=== PATIENT | female | born 2005 | race Two or more races ===

== ENCOUNTER 2024-11-28 13:04 | Outpatient (AMB) | payer MEDICAID, SELFPAY ==
--- NOTE | 2024-11-28 13:09 | OBCLNT_ITS ---
Vital Signs 11/28/24 13:24 Height 1.65 m Height Method Stated Weight 89.018 kg Weight Measurement Method Standing Scale BMI 32.6 BP 118/75 Blood Pressure Source Automatic Cuff Blood Pressure Location Left Upper Arm Position Sitting Respiration 16 Pulse 81 Pulse Source Monitor Temp 98.1 F Temp Source Oral Pulse Oximetry (%) 97 Oxygen Delivery Method Room Air Allergies/Home Meds Allergies & Medications Allergies No Known Allergies Allergy (Verified 11/28/24 13:25) Medication Reconciliation No Known Home Medications 11/28/24 [History Confirmed 11/28/24] Intake Visit Data Collection New Patient or Established: Established Patient (seen at 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 1. Little interest or pleasure in doing things: not at all 2. Feeling down, depressed, or hopeless: not at all Total score: 0 PHQ-9 3. Trouble falling or staying asleep, or sleeping too much: Not at all 4. Feeling tired or having little energy: Not at all 5. Poor appetite or overeating: Not at all 6. Feeling bad about yourself - or that you are a failure or have let yourself or your family down: Not at all 7. Trouble concentrating on things, such as reading the newspaper or watching television: Not at all 8. Moving or speaking so slowly that other people could have noticed? - Or the opposite - being so fidgety or restless that you have been moving around a lot more than usual: not at all 9. Thoughts that you would be better off or of hurting yourself in some way: Not at all Total score: 0 Source: Developed by Drs. Genaro Monahan, Salima Baker, Pravin Myers and colleagues, with an educational mara from [employer]. Depression screen completed yes Social History Living Situation History Marital Status: Single Lives With: Family Housing: House Tobacco History Smoking Status: Never smoker Second Hand Smoke Exposure: No Alcohol History Alcohol Intake: Current Alcohol Intake Frequency: holidays/special occasions only Domestic Abuse History Do You Feel Safe at Home: Yes History of Present Illness HPI Narrative 19-year-old 1 para 0 for OBI. Patient has no dates. She thinks maybe her last period was in September. History of irregular menses. Plan . Patient denies existence of any chronic medical problems. Denies any surgeries. Denies any social habits. She has slight nausea. No vomiting. Both her and her partner are happy about the . Patient complains of spotting light for the last 2 days. 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 No dates. Slight nausea. Patient reports spotting light pink for 2 days. No UC is no leaking fluid. Beta -hCG x 1. OB panel today. I did a A1c and a TSH. Sono ordered at [facility]. Discussed SAB precautions. Return in 2 weeks for follow-up and OB check Menstrual History Menstrual reliability: approximate (month known) Flow: normal Menstrual regularity: irregular Monthly: No Age at menarche: 10 On control pills at conception: No Date of positive home test: 11/12/24 Associated symptoms (LMP): Reports nausea and breast tenderness OB History : 1 # of Living Children: 0 Infection History & Risk Evaluation History of STDs: chlamydia Genetic Screening & History Genetic Screening/Teratology Counseling - Includes patient, baby's father, or anyone in either family with: 1. Patient's age 35 years or older as of estimated date of delivery: No 2. Thalassemia (Tajik, Turkish, Mediterranean, or Background); MCV less than 80: No 3. Neural Tube Defect (Meningomyelocele, Spina Bifida, or Anencephaly): No 4. Congenital Heart Defect: No 5. Down Syndrome: No 6. Shade-Sachs (Ashkenazi Druze, Cajun, Azeri [place]): No 7. Rowena Disease (Ashkenazi Druze): No 8. Familial Dysautonomia (Ashkenazi Druze): No 9. Sickle Cell Disease or Trait (): No 10. Hemophilia or other blood disorders: No 11. Muscular Dystrophy: No 12. Cystic Fibrosis: No 13. Atkinson's Chorea: No 14. Mental Retardation/Autism: No 15. Other inherited genetic or chromosomal disorder: No 16. Maternal Metabolic Disorder (EG,TYPE 1 Diabetes, PKU): No 17. Patient or baby's father had a child with defects not listed above: No 18. Recurrent loss or a stillbirth: No 19. Medications (including supplements, vitamins, herbs or otc drugs)/illicit/recreational drugs/alcohol since last menstrual period: No 20. Any other: No Infection History 1. Live with someone with TB or exposed to TB: No 2. Rash or viral illness since last menstrual period: No 3. Hepatitis B,C: No 4. History of STD: chlamydia Other (see comments) Source: [employer] Review of Systems Review of Systems Systems Reviewed: All systems reviewed, normal except as documented Gastrointestinal Gastrointestinal: Reports nausea Exam General Limitations: no limitations General Appearance: alert, in no apparent distress, comfortable, cooperative, healthy appearing, well developed and well groomed Head Head exam: atraumatic, normocephalic and normal inspection ENT ENT exam: Present normal exam, normal oropharynx and mucous membranes moist Chest Chest inspection: Present normal inspection and symmetric chest wall rise Resp Respiratory exam: Present normal lung sounds bilaterally Card Cardiovascular exam: Present regular rate, normal rhythm and normal heart sounds Abdominal Abdominal exam: Present soft and normal bowel sounds Psych Psychiatric exam: Present normal affect and normal mood Office Procedures OB Clinic LOC & Office Proc's Nursing/Assessment Patient Status: Established Patient OB Clinic Nursing Assessment: Medication Reconciliation, Update PMH in EMR and Vital Signs OB Clinic Coordination of Care: Complex Care and Chronic Disease 1-5, Consent,records obtained, informed consent, Education Simp Pt/Fam, 1 Ins Authorization, Lab and Imaging orders, Results/Orders obtained and Staff clarify orders Special Needs: Heart tones Established Patient Charge Established Patient Point Assignment: 150 Established Patient Point Charge: EP Level 4 (120-155) Assessment & Plan Diagnosis / Problem List (1) Encounter for supervision of high risk in first trimester, antepartum: Status: Acute (2) Uterine size-date discrepancy in first trimester: Status: Acute Plan OB panel today with hCG, A1c and TSH. Discussed SAB precautions. ER precautions with parameters. Increase fluids. Discussed diet and weight. Ultrasound scheduled at [facility] for viability. Continue prenatals. Return in 2 weeks for OB check and results Additional Plan Follow Up: 2 Weeks (obc)
[2024-11-28 13:24] VITALS: BP 118/75; PULSE 81; RESP 16; TEMP 36.7; O2SAT 97; BMI 32.6
== END 2024-11-28 13:51 | disposition home or self-care (01) ==
LOC: HODSOBC 13:04
PROVIDERS: Supervising Provider Advanced Practice Midwife; Visit Provider Advanced Practice Midwife
DX: O09.891 Supervision of other high risk pregnancies, first trimester (principal); O26.841 Uterine size-date discrepancy, first trimester; Z3A.09 9 weeks gestation of pregnancy
CPT/HCPCS: 99214; G0463

== ENCOUNTER 2024-12-31 13:29 | Outpatient (AMB) | payer MEDICAID, SELFPAY ==
[2024-12-31 13:53] VITALS: BP 107/70; PULSE 91; RESP 16; TEMP 36.2; O2SAT 98; BMI 31.6
--- NOTE | 2024-12-31 13:53 | OBCLNT_ITS ---
Vital Signs 12/31/24 13:53 Height 1.65 m Height Method Stated Weight 86.239 kg Weight Measurement Method Standing Scale BMI 31.6 BP 107/70 Blood Pressure Source Automatic Cuff Blood Pressure Location Left Upper Arm Position Sitting Respiration 16 Pulse 91 Pulse Source Monitor Temp 97.2 F Temp Source Oral Pulse Oximetry (%) 98 Oxygen Delivery Method Room Air Allergies/Home Meds Allergies & Medications Allergies No Known Allergies Allergy (Verified 12/31/24 13:54) Medication Reconciliation No Known Home Medications 11/28/24 [History Confirmed 12/31/24] Intake Visit Data Collection New Patient or Established: Established Patient (seen at [facility] within 3 years) Reason for Visit:: OBC Seen by Clinical Staff ONLY (RN/MA): No Concrete Bucket Hooker Required: No Do You Feel Safe at Home: Yes Authorities Contacted: N/A PCP or OBGYN visit in last 3 months: Yes Date of Last PCP or OBGYN visit: 11/28/24 Hx Now: Yes Are you currently on any form of Control: No Pain Present Currently: Yes Pain Scale Used: [place]ant[place]ruz/Numerical Pain scale:: 0 Smoking Status Smoking Status: Never smoker Questionnaires Covid-19 Vaccine Questionnaire Has patient been vacinated for Covid-19 Have you been vacinated for Covid-19: Yes PHQ-9 PHQ-2 Over the last 2 weeks, how often have you been bothered by any of the following problems? 1. Little interest or pleasure in doing things: not at all 2. Feeling down, depressed, or hopeless: not at all Total score: 0 PHQ-9 3. Trouble falling or staying asleep, or sleeping too much: Not at all 4. Feeling tired or having little energy: Not at all 5. Poor appetite or overeating: Not at all 6. Feeling bad about yourself - or that you are a failure or have let yourself or your family down: Not at all 8. Moving or speaking so slowly that other people could have noticed? - Or the opposite - being so fidgety or restless that you have been moving around a lot more than usual: not at all 9. Thoughts that you would be better off or of hurting yourself in some way: Not at all If you checked off any problems, how difficult have these problems made it for you to do your work, take care of things at home, or get along with other people?: not difficult at all Source: Developed by Drs. Genaro Monahan, Salima Baker, Pravin Myers and colleagues, with an educational mara from [employer]. 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 No dates. Slight nausea. Patient reports spotting light pink for 2 days. No UC is no leaking fluid. Beta -hCG x 1. OB panel today. I did a A1c and a TSH. Sono ordered at [facility]. Discussed SAB precautions. Return in 2 weeks for follow-up and OB check 12/31/24 -?-?-?-?-?-?-?-?-?-?-?-?- 14w 3d 86.239 kg 107/70 absent unknown 10 145 absent No spotting today. Patient last about 3 weeks ago pink. Denies any first trimester discomforts. Patient did not have ultrasound done at [facility]. Schedule [facility] ultrasound. NIPT and carrier screen. Discussed SAB precautions. Return in 4 weeks OB check HOANG Calculator Estimated Delivery Date Method Current WG Current Estimate 06/28/25 LMP (Uncertain) 14w 3d Notes Visit Date: 12/31/24 Last Updated by: Carmel Deleon CNM O-,ABS-, HCV-,HBSAG-, HIV-, RUB NI, GC/CT-, /362, UT-,A1;5.3 Visit Date: 11/28/24 Last Updated by: Carmel Deleon CNM 19 yo . no dates Office Procedures OB Clinic LOC & Office Proc's Nursing/Assessment Patient Status: Established Patient OB Clinic Nursing Assessment: Medication Reconciliation, Update PMH in EMR and Vital Signs OB Clinic Coordination of Care: Education Complex Pt/Fam, Consent,records obtained, informed consent, Lab and Imaging orders and Staff clarify orders Special Needs: Heart tones Established Patient Charge Established Patient Point Assignment: 110 Established Patient Point Charge: EP Level 3 (80-115) Assessment & Plan Diagnosis / Problem List (1) Encounter for supervision of high risk in first trimester, antepartum: Status: Acute (2) Uterine size-date discrepancy in first trimester: Status: Acute Plan NIPT and carrier screens today. Schedule [facility] sono with Dr. Hurd. Discussed SAB precautions. I discussed labs and Rh- with patient RhoGAM at 28 weeks Additional Plan Follow Up: 4 Weeks (obc)
== END 2024-12-31 14:46 | disposition home or self-care (01) ==
LOC: HODSOBC 13:29
PROVIDERS: Supervising Provider Advanced Practice Midwife; Visit Provider Advanced Practice Midwife
DX: O09.892 Supervision of other high risk pregnancies, second trimester (principal); O26.842 Uterine size-date discrepancy, second trimester; Z67.41 Type O blood, Rh negative; Z3A.14 14 weeks gestation of pregnancy
CPT/HCPCS: 99213; G0463

== ENCOUNTER 2025-01-05 10:40 | Emergency (ER) | payer MEDICAID, SELFPAY ==
[2025-01-05 10:41] VITALS: BMI 19.8
[2025-01-05 11:04] VITALS: BP 108/68; PULSE 73; RESP 18; TEMP 36.6; O2SAT 99
--- NOTE | 2025-01-05 11:09 | XR_ITS ---
Examination: Complete OB ultrasound, less than 14 weeks, transabdominal Date and time of exam: January 05, 2025, 1233 hours INDICATIONS: Pelvic cramping and bleeding today Technique: Obstetrical ultrasound images less than 14 weeks performed via transabdominal imaging Findings: A normal shaped single intrauterine gestation is present in the uterus. CRL 5.3 cm corresponds to 12 weeks 0 day gestational age Cardiac motion 160 BPM. No subchorionic hemorrhage Right ovary obscured by bowel gas Left ovary 4.6 cm arterial flow 17 x 17 mm cyst Ultrasonographic survey of visible and placental structures unremarkable. Amniotic fluid volume appears appropriate for this estimated gestational age. Impression: Viable intrauterine gestation 12 weeks 0 days.
--- NOTE | 2025-01-05 11:10 | EDNOTE_ITS ---
<Statement entered by Soni Goldstein MD - 01/05/25 14:32> As co-signing physician, I was present and available for consult prn. I concur with the plan and care as documented by the midlevel provider. ED OB Contraction Preg RMI/HPI General Chief complaint: Urogenital-Female Stated complaint: VAG BLEEDING + PREG 11 WEEKS Time Seen by Provider: 01/05/25 11:09 Source: patient Arrival date/time: 01/05/25 10:40 19-year-old female with no known medical history presents to the emergency room with a chief complaint of vaginal bleeding and left lower quadrant abdominal pain x 2 days. Patient is currently 11 weeks . Mode of arrival: ambulatory Limitations: no limitations Related Data Home Medications ?Medication ?Instructions ?Recorded ?Confirmed No Known Home Medications 11/28/2412/22 Allergies Allergy/AdvReac Type Severity Reaction Status Date / Time No Known Allergies Allergy Verified 01/05/25 10:43 Review of Systems Review of Systems Systems Reviewed: All systems reviewed, normal except as documented Constitutional Constitutional: Reports system reviewed and no additional complaints, except as documented, Denies fatigue, Denies fever(s), Denies headache(s) and Denies weakness Eyes Eyes: Reports system reviewed and no additional complaints, except as documented, Denies blurry vision and Denies change in vision ENT Ears, Nose, Mouth, and Throat: Reports system reviewed and no additional complaints, except as documented, Denies otalgia, Denies headache(s), Denies nasal congestion, Denies throat swelling and Denies vertigo Cardiovascular Cardiovascular: Reports system reviewed and no additional complaints, except as documented, Denies chest pain, Denies dyspnea and Denies dyspnea on exertion Respiratory Respiratory: Reports system reviewed and no additional complaints, except as documented, Denies chest congestion, Denies cough, Denies dyspnea, Denies dyspnea on exertion and Denies wheezing Gastrointestinal Gastrointestinal: Reports system reviewed and no additional complaints, except as documented, Reports abdominal pain, Denies cramping, Reports nausea and Denies vomiting Genitourinary Genitourinary: Reports system reviewed and no additional complaints, except as documented and Reports abnormal vaginal bleeding Musculoskeletal Musculoskeletal: Reports system reviewed and no additional complaints, except as documented and Denies back pain Integumentary/Breasts Skin/Breast: Reports system reviewed and no additional complaints, except as documented and Denies wounds Neurologic Neurologic: Reports system reviewed and no additional complaints, except as documented, Denies confusion, Denies headache(s), Denies lack of coordination, Denies vertigo and Denies weakness Psychiatric Psychiatric: Reports system reviewed and no additional complaints, except as documented, Denies anxiety, Denies confusion, Denies depression, Denies paranoia, Denies suicidal ideation and Denies tactile hallucinations Endocrine Endocrine: Reports system reviewed and no additional complaints, except as documented and Denies fatigue Hematologic/Lymphatic Hematologic/Lymphatic: Reports system reviewed and no additional complaints, except as documented and Denies lymphadenopathy Allergic/Immunologic Allergic/Immunologic: Reports system reviewed and no additional complaints, except as documented, Denies throat swelling, Denies urticaria and Denies wheezing Past Medical History Past Medical History NEUROLOGIC: Negative Neurological Disorders CARDIAC: Negative Cardiac Disorders Social History SMOKING STATUS: Never smoker SECOND HAND EXPOSURE: No ED Exam General Limitations: Present no limitations General appearance: Present alert and in no apparent distress Head Head exam: Present atraumatic Eye Eye exam: Present normal appearance, PERRL and EOMI ENT ENT exam: Present normal exam, normal oropharynx and mucous membranes moist Neck Neck exam: Present normal inspection, full ROM and trachea midline Chest Chest inspection: Present normal inspection and symmetric chest wall rise Respiratory Respiratory exam: Present normal lung sounds bilaterally Cardiovascular Cardiovascular exam: Present regular rate, normal rhythm and normal heart sounds Abdominal Exam Abdominal exam: Present soft, tenderness and normal bowel sounds Abdominal tenderness: Present LLQ and suprapubic Extremities Exam Extremities exam: Present normal inspection and full ROM Back Exam Back exam: Present normal inspection and full ROM Neurological Exam Neurological exam: Present alert, oriented X3 and CN II-XII intact Psychiatric Psychiatric exam: Present normal affect and normal mood Skin Skin exam: Present warm, dry, intact and normal color Course Quality Measures none Orders Category Date Time Status US OB <= 14 weeks fetus Stat Exams 01/05/25 11:09 Completed ABO/RH Type Stat Lab 01/05/25 11:40 Completed Beta HCG,Quantitative Stat Lab 01/05/25 11:40 Completed CBC Stat Lab 01/05/25 11:40 Completed CMP [Comprehensive Metabolic Panel] Stat Lab 01/05/25 11:40 Completed UA [Urinalysis] Stat Lab 01/05/25 11:10 Completed Vital Signs Vital signs: Vital Signs Temperature 97.9 F 01/05/25 11:04 Pulse Rate 73 01/05/25 11:04 Respiratory Rate 18 01/05/25 11:04 Blood Pressure 108/68 01/05/25 11:04 Pulse Oximetry (%) 99 01/05/25 11:04 Oxygen Delivery Method Room Air 01/05/25 11:04 Vaginal Bleeding MDM Narrative MDM Narrative: 19-year-old female with no known medical history presents to the emergency room with a chief complaint of vaginal bleeding and left lower quadrant abdominal pain x 2 days. Patient is currently 11 weeks . Patient is hemodynamically stable and in no apparent distress Physical examination shows some left lower quadrant abdominal pain as well as some vaginal spotting Ultrasound OB was completed and shows a viable intrauterine gestation at 12 weeks. heart tones at 160 bpm and her hCG levels are 74,377 CBC CMP were all within normal limits. The ultrasound did find a 17 x 17 mm cyst on the left ovary Patient was discharged and educated to follow-up with primary care provider in the next 24 to 48 hours and return to the emergency room for any evidence of worsening signs or symptoms Patient data External records reviewed:: [facility] previous records Clinical information provided by:: patient Social determinants that could affect healthcare access:: none Patient has the following chronic illnesses:: No chronic illness How is presenting disease/condition affected by chronic disease/condition?: no chronic disease Evaluation data The following diagnostics were reviewed and interpreted by me:: lab results and radiology exam(s) Lab and/or radiology exams considered but not ordered:: Labs and radiology exams considered and ordered Interpretation Summary: Ultrasound OB-Findings: A normal shaped single intrauterine gestation is present in the uterus. CRL 5.3 cm corresponds to 12 weeks 0 day gestational age Cardiac motion 160 BPM. No subchorionic hemorrhage Right ovary obscured by bowel gas Left ovary 4.6 cm arterial flow 17 x 17 mm cyst Ultrasonographic survey of visible and placental structures unremarkable. Amniotic fluid volume appears appropriate for this estimated gestational age. Impression: Viable intrauterine gestation 12 weeks 0 days. Medications / Prescriptions Medications or Prescriptions considered but not ordered:: No medication given Medication administrations:: No medication given Consultations Consultation(s) initiated? (list below): No Diagnosis Vaginal Bleeding Differential Diagnosis: threatened , dysfunctional uterine bleeding, ectopic without intrauterine and vaginal bleeding Most likely diagnosis given after review of the tests above:: Vaginal bleeding/ovarian cyst Admission Indicated Admission indicated?: not indicated Admission Request Was there a request for admission?: No Disposition Plan Disposition Plan: Discharge Discharge Attestation Discharge Attestation: The patient and all family members were given an opportunity to ask questions and understood the discharge instructions. Discharge instructions specifically effects, indications for sooner follow up or return to the emergency department, and the expected course of current diagnosis. Patient condition: Stable Discharge Plan Plan Patient Disposition: HOME (Self Care) Discharge Disposition comment: Stable Prescriptions/Referrals Prescriptions/Med Rec: No Action No Known Home Medications Referrals: No Primary/Family,Physician [Primary Care Provider] - In 1 week Problem List Clinical Impression: Vaginal bleeding during , Ovarian cyst Patient/Caregiver Discharge Instructions Education Materials: Bleeding During Early , ED Ovarian Cyst Additional Instructions: Please follow-up with your EMERGENCY MEDICINE PHYSICIAN in the next 24 to 48 hours An ultrasound was completed and shows a in good standing at 12 weeks. Your heart tones are 160 bpm. And your hCG levels are at 74,377. There was also an incidental finding of a 17 x 17 mm left-sided ovarian cyst. Please follow-up with your EMERGENCY MEDICINE PHYSICIAN for further management. For any evidence of worsening signs or symptoms please return to the emergency room immediately Print Language: Mongolian Stand Alone Forms: Brianna Award Info., Work/School Release, Patient Portal Info Letter KARLY/TOMY Supervising Physician KARLY/TOMY Supervising Physician: Dr. GOLDSTEIN
[2025-01-05 11:33] LABS: Collection Type, Urine Clean Catch
[2025-01-05 12:01] LABS: Bilirubin,Urine Negative (Negative); Blood,Urine 2+ (Negative); Clarity,Urine Turbid (Clear/Hazy); Color,Urine Yellow (Lt Yel-Yel); Glucose, Urine Negative (Negative); Ketones,Urine Negative (Negative); Leukocyte Esterase,Urine Positive (Negative); Nitrite,Urine Negative (Negative); PH,Urine 6.0 (5.0-7.0); Protein,Urine Trace (Neg - Trace); RBC,Urine 15 /hpf (0-3); Specific Gravity,Urine 1.031 (1.001-1.035); Squamous Epithelial Cell,Urine 18 /hpf (0-5); Urobilinogen,Urine Negative mg/dL (0.0-1.0); WBC,Urine 26 /hpf (0-5)
[2025-01-05 12:18] LABS: Basophils # (Auto) 0.1 Thou/mm3 (0.0-0.2); Basophils % (Auto) 1 % (0-2.5); Eosinophils # (Auto) 0.2 Thou/mm3 (0.0-0.5); Eosinophils % (Auto) 2 % (0-10); Hematocrit 34.9 % (36.0-46.0); Hemoglobin 11.6 g/dL (12.0-16.0); Immature Granulocytes Auto 0.05 Thou/mm3 (0.00-0.00); Lymphocytes # (Auto) 2.5 Thou/mm3 (1.0-4.8); Lymphocytes % (Auto) 25 % (10-50); Mean Corpuscular HGB Conc 33.2 g/dl (31.0-37.0); Mean Corpuscular Hemoglobin 28.1 pg (25.0-35.0); Mean Corpuscular Volume 85 fL (80-100); Monocytes # (Auto) 0.7 Thou/mm3 (0.0-0.8); Monocytes % (Auto) 7 % (0-12); Neutrophils # (Auto) 6.7 Thou/mm3 (1.8-7.7); Neutrophils % (Auto) 65 % (37-80); Nucleated Red Blood Cell # 0.00 Thou/mm3 (0.00-0.00); Nucleated Red Blood Cell % 0 /100 WBC (0); Platelet Count 339 Thou/mm3 (140-440); RDW Standard Deviation 47.2 fL (36.4-46.3); Red Blood Count 4.13 Miln/mm3 (4.00-5.20); White Blood Count 10.2 Thou/mm3 (3.6-11.0)
[2025-01-05 13:00] LABS: Alanine Aminotransferase 51 U/L (10-49); Albumin, Serum 4.2 gm/dL (3.5-5.0); Albumin/Globulin Ratio 1.5 (1.2-2.2); Alkaline Phosphatase 56 U/L (46-116); Anion Gap 10 (7-16); Aspartate Amino Transferase 32 U/L (0-34); BUN/Creatinine Ratio 8 Ratio (12-20); Bilirubin,Total 0.3 mg/dL (0.3-1.2); Blood Urea Nitrogen 5 mg/dL (9-23); Calcium 10.3 mg/dL (8.3-10.6); Calcium (Corrected) 10.3 mg/dL (8.5-10.1); Carbon Dioxide 24.7 mMol/L (20.0-31.0); Chloride 104 mMol/L (98-107); Creatinine (Component) 0.6 mg/dL (0.6-1.3); Estimated Creatinine Clearance 126.4 mL/min (>60); Globulin 2.8 gm/dL (2.3-3.5); Glucose 91 mg/dL (74-106); Osmolality,Calculated 274 (275-295); Potassium 4.1 mMol/L (3.4-5.1); Sodium 139 mMol/L (136-145); Total Protein 7.0 gm/dL (5.7-8.2); eGFR > 60 See Note
[2025-01-05 13:24] LABS: Beta HCG,Quantitative 74377 mIU/mL (<5.0)
== END 2025-01-05 15:06 | disposition home or self-care (01) ==
PROVIDERS: Emergency Provider Nurse Practitioner Family
DX: O20.9 Hemorrhage in early pregnancy, unspecified (principal); O34.81 Maternal care for other abnormalities of pelvic organs, first trimester; N83.202 Unspecified ovarian cyst, left side; Z3A.12 12 weeks gestation of pregnancy
CPT/HCPCS: 36415; 76801; 80053; 81001; 84702; 85025; 86900; 86901; 99283

== ENCOUNTER 2025-01-28 12:59 | Outpatient (AMB) | payer MEDICAID, SELFPAY ==
--- NOTE | 2025-01-28 13:07 | OBCLNT_ITS ---
Vital Signs 01/28/25 13:08 Height 1.65 m Height Method Stated Weight 85.899 kg Weight Measurement Method Standing Scale BMI 31.5 BP 116/72 Blood Pressure Source Automatic Cuff Blood Pressure Location Left Upper Arm Position Sitting Respiration 16 Pulse 79 Pulse Source Monitor Temp 98.8 F Temp Source Oral Pulse Oximetry (%) 98 Oxygen Delivery Method Room Air Allergies/Home Meds Allergies & Medications Allergies No Known Allergies Allergy (Verified 01/28/25 13:10) Medication Reconciliation No Known Home Medications 11/28/24 [History Confirmed 01/28/25] Intake Visit Data Collection New Patient or Established: Established Patient (seen at [facility] within 3 years) Reason for Visit:: OBC Seen by Clinical Staff ONLY (RN/MA): No Practical Nurse Clinical Coordinator Required: No Do You Feel Safe at Home: Yes Authorities Contacted: N/A PCP or OBGYN visit in last 3 months: Yes Date of Last PCP or OBGYN visit: 01/05/25 Hx Now: Yes Are you currently on any form of Control: No Pain Present Currently: No Pain Scale Used: [place]/Numerical Pain scale:: 0 Smoking Status Smoking Status: Never smoker Questionnaires Covid-19 Vaccine Questionnaire Has patient been vacinated for Covid-19 Have you been vacinated for Covid-19: Yes PHQ-9 PHQ-2 Over the last 2 weeks, how often have you been bothered by any of the following problems? 1. Little interest or pleasure in doing things: not at all 2. Feeling down, depressed, or hopeless: not at all Total score: 0 PHQ-9 3. Trouble falling or staying asleep, or sleeping too much: Not at all 4. Feeling tired or having little energy: Not at all 5. Poor appetite or overeating: Not at all 6. Feeling bad about yourself - or that you are a failure or have let yourself or your family down: Not at all 7. Trouble concentrating on things, such as reading the newspaper or watching television: Not at all 8. Moving or speaking so slowly that other people could have noticed? - Or the opposite - being so fidgety or restless that you have been moving around a lot more than usual: not at all 9. Thoughts that you would be better off or of hurting yourself in some way: Not at all Total score: 0 If you checked off any problems, how difficult have these problems made it for you to do your work, take care of things at home, or get along with other people?: not difficult at all Source: Developed by Drs. Genaro Monahan, Salima Baker, Pravin Myers and colleagues, with an educational mara from [employer]. 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 No dates. Slight nausea. Patient reports spotting light pink for 2 days. No UC is no leaking fluid. Beta -hCG x 1. OB panel today. I did a A1c and a TSH. Sono ordered at OB. Discussed SAB precautions. Return in 2 weeks for follow-up and OB check 12/31/24 -?-?-?-?-?-?-?-?-?-?-?-?- 14w 3d 86.239 kg 107/70 absent unknown 10 145 absent No spotting today. Patient last about 3 weeks ago pink. Denies any first trimester discomforts. Patient did not have ultrasound done at OB. Schedule [facility] ultrasound. NIPT and carrier screen. Discussed SAB precautions. Return in 4 weeks OB check HOANG Calculator Estimated Delivery Date Method Current WG Current Estimate 06/28/25 LMP (Uncertain) 18w 3d Notes Visit Date: 12/31/24 Last Updated by: Carmel Deleon CNM O-,ABS-, HCV-,HBSAG-, HIV-, RUB NI, GC/CT-, /, UT-,A1;5.3 Visit Date: 11/28/24 Last Updated by: Carmel Deleon CNM 19 yo . no dates Office Procedures OBC Clinic LOC & Office Proc's Nursing/Assessment Patient Status: Established Patient OB Clinic Nursing Assessment: Medication Reconciliation, Update PMH in EMR and Vital Signs OB Clinic Coordination of Care: Education Complex Pt/Fam, Consent,records obtained, informed consent, Lab and Imaging orders, Results/Orders obtained and Staff clarify orders Special Needs: Heart tones Established Patient Charge Established Patient Point Assignment: 115 Established Patient Point Charge: EP Level 3 (80-115) Assessment & Plan Diagnosis / Problem List (1) Encounter for supervision of high risk in second trimester, antepartum: Status: Acute Additional Assessment Corrected EDC to 07/20\26. aFP today. Keep appointment with maternal- medicine when they schedule it. Discussed SAB precautions. Continue prenatals. Return in 4 weeks OB check
[2025-01-28 13:08] VITALS: BP 116/72; PULSE 79; RESP 16; TEMP 37.1; O2SAT 98; BMI 31.5
== END 2025-01-28 13:24 | disposition home or self-care (01) ==
LOC: HODSOBC 12:59
PROVIDERS: Supervising Provider Advanced Practice Midwife; Visit Provider Advanced Practice Midwife
DX: O09.92 Supervision of high risk pregnancy, unspecified, second trimester (principal); Z3A.18 18 weeks gestation of pregnancy
CPT/HCPCS: 99213; G0463

== ENCOUNTER 2025-03-13 12:54 | Outpatient (AMB) | payer MEDICAID, SELFPAY ==
--- NOTE | 2025-03-13 13:10 | OBCLNT_ITS ---
Vital Signs 03/13/25 13:13 Height 1.65 m Height Method Stated Weight 89.868 kg Weight Measurement Method Standing Scale BMI 33.0 BP 131/78 H Blood Pressure Source Automatic Cuff Blood Pressure Location Left Upper Arm Position Sitting Respiration 18 Pulse 90 Pulse Source Monitor Temp 97.2 F Temp Source Oral Pulse Oximetry (%) 98 Oxygen Delivery Method Room Air Allergies/Home Meds Allergies & Medications Allergies No Known Allergies Allergy (Verified 03/13/25 13:14) Medication Reconciliation No Known Home Medications 11/28/24 [History Confirmed 03/13/25] Immunizations Immunizations Flu Vaccine in the Last 12 Months: No Flu Vaccine Exclusion Criteria: No Exclusion Criteria Care OB Visit Log OB Flowsheet Initial Weight: Not Recorded Date -?-?-?-?-?-?-?-?-?-?-?-?- EGA Weight BP Alb Glu CTX Pres Fundal ht FHR Mov Dilation Station Effacement Hx Notes Visit Note 11/28/24 -?-?-?-?-?-?-?-?-?-?-?-?- 6w 4d 89.018 kg 118/75 absent unknown 5 ab sent 19-year-old primary for OBI. No dates. Slight nausea. Patient reports spotting light pink for 2 days. No UC is no leaking fluid. Beta -hCG x 1. OB panel today. I did a A1c and a TSH. Sono ordered at [facility]. Discussed SAB precautions. Return in 2 weeks for follow-up and OB check 12/31/24 -?-?-?-?-?-?-?-?--?-?-?-?- 11w 2d 86.239 kg 107/70 absent unknown 10 145 absent No spotting today. Patient last about 3 weeks ago pink. Denies any first trimester discomforts. Patient did not have ultrasound done at [facility]. Schedule [facility] ultrasound. NIPT and carrier screen. Discussed SAB precautions. Return in 4 weeks OB check 01/28/25 -?-?-?-?-?-?-?--?-?-?-?-?- 15w 2d 85.899 kg 116/72 absent unknown 15 145 absent 17 mm ovarian cyst. Corrected EDC July 20, 2025. Denies bleeding denies cramps denies leaking on January 05. The ultrasound showed 12-week and of Discussed NIPT results. aFP today. MFM pending. Discussed SAB precautions. Discussed dates and corrected EDC wrong dates HOANG Calculator Estimated Delivery Date Method Current WG Current Estimate 07/20/25 Ultrasound #1 21w 4d Other Estimates 06/28/25 LMP (Uncertain) 24w 5d 07/20/25 Manual 21w 4d final hoang: 07/20 Notes Visit Date: 01/28/25 Last Updated by: Carmel Deleon CNM NIPT-,SMA-,CF-. sono 01/05/25: iup 12 wk, CEDC:07/20/24 Visit Date: 12/31/24 Last Updated by: Carmel Deleon CNM O-,ABS-, HCV-,HBSAG-, HIV-, RUB NI, GC/CT-, , UT-,A1;5.3 Visit Date: 11/28/24 Last Updated by: Carmel Deleon CNM 19 yo . no dates Office Procedures OBC Clinic LOC & Office Proc's Nursing/Assessment Patient Status: Established Patient OB Clinic Nursing Assessment: Medication Reconciliation, Update PMH in EMR and Vital Signs OB Clinic Coordination of Care: Consent,records obtained, informed consent, Education Simp Pt/Fam, Lab and Imaging orders, Results/Orders obtained and Staff clarify orders Established Patient Charge Established Patient Point Assignment: 80 Established Patient Point Charge: EP Level 3 (80-115) Assessment & Plan Diagnosis / Problem List (1) Encounter for supervision of high risk in second trimester, antepartum: Status: Acute Plan Type, Rh, hemoglobin A1c, RPR, CBC and 1 hour GTT along with cholestasis labs today. Comfort measures for itching. Discussed labor precautions. Patient has her anatomy scan scheduled for March 23. Return in 4 weeks OB check
[2025-03-13 13:13] VITALS: BP 131/78; PULSE 90; RESP 18; TEMP 36.2; O2SAT 98; BMI 33.0
== END 2025-03-13 13:43 | disposition home or self-care (01) ==
LOC: HODSOBC 12:54
PROVIDERS: Supervising Provider Advanced Practice Midwife; Visit Provider Advanced Practice Midwife
DX: O09.92 Supervision of high risk pregnancy, unspecified, second trimester (principal); Z3A.21 21 weeks gestation of pregnancy
CPT/HCPCS: 99213; G0463

== ENCOUNTER 2025-04-20 13:01 | Outpatient (AMB) | payer MEDICAID, SELFPAY ==
[2025-04-20 13:10] VITALS: BP 101/69; PULSE 83; RESP 16; TEMP 36.6; O2SAT 98; BMI 33.7
--- NOTE | 2025-04-20 13:10 | OBCLNT_ITS ---
Vital Signs 04/20/25 13:10 Height 1.65 m Height Method Stated Weight 91.852 kg Weight Measurement Method Standing Scale BMI 33.7 BP 101/69 Blood Pressure Source Automatic Cuff Blood Pressure Location Left Upper Arm Position Sitting Respiration 16 Pulse 83 Pulse Source Monitor Temp 97.8 F Temp Source Oral Pulse Oximetry (%) 98 Oxygen Delivery Method Room Air Allergies/Home Meds Allergies & Medications Allergies No Known Allergies Allergy (Verified 04/20/25 13:11) Medication Reconciliation ferrous sulfate 325 mg (65 mg iron) tablet 325 mg PO BID #60 tabs 04/20/25 [Rx] vitamins-iron fumarate 66 mg iron-folic acid 1 mg tablet tab PO 04/20/25 [History Confirmed 04/20/25] Immunizations Immunizations Flu Vaccine in the Last 12 Months: No Flu Vaccine Exclusion Criteria: Refused by Patient Care OB Visit Log OB Flowsheet Initial Weight: Not Recorded Date -?-?-?-?-?-?-?-?-?-?-?-?- EGA Weight BP Alb Glu CTX Pres Fundal ht FHR Mov Dilation Station Effacement Hx Notes Visit Note 11/28/24 -?-?-?-?-?-?-?-?-?-?-?-?- 6w 4d 89.018 kg 118/75 absent unknown 5 ab sent 19-year-old primary for OBI. No dates. Slight nausea. Patient reports spotting light pink for 2 days. No UC is no leaking fluid. Beta -hCG x 1. OB panel today. I did a A1c and a TSH. Sono ordered at [facility]. Discussed SAB precautions. Return in 2 weeks for follow-up and OB check 12/31/24 -?-?-?-?-?-?-?-?-?-?-?-?- 11w 2d 86.239 kg 107/70 absent unknown 10 145 absent No spotting today. Patient last about 3 weeks ago pink. Denies any first trimester discomforts. Patient did not have ultrasound done at [facility]. Schedule [facility] ultrasound. NIPT and carrier screen. Discussed SAB precautions. Return in 4 weeks OB check 01/28/25 -?-?-?-?-?-?-?-?-?-?-?-?- 15w 2d 85.899 kg 116/72 absent unknown 15 145 absent 17 mm ovarian cyst. Corrected EDC July 20, 2025. Denies bleeding denies cramps denies leaking on January 05. The ultrasound showed 12-week and of Discussed NIPT results. aFP today. MFM pending. Discussed SAB precautions. Discussed dates and corrected EDC wrong dates 03/13/25 -?-?-?-?-?-?-?-?-?-?-?-?- 21w 4d 89.868 kg 131/78 absent unknown 20 145 absent Fetus active. Denies leaking, bleeding, contractions. Patient complains of itching upper body Bile acids total and bili drawn for cholestasis labs. Third trimester labs. Will do RhoGAM at 28 weeks. 04/20/25 -?-?-?-?-?-?-?-?-?-?-?-?- 27w 0d 91.852 kg 101/69 absent unknown 27 145 absent Fetus active. Denies leaking, bleeding, contractions RHOGAM today. Discussed labor precautions. Discussed sono. Kick count twice a day. Iron twice a day. Increase fluids and will follow-up her bile acids 8 months.. iron bid HOANG Calculator Estimated Delivery Date Method Current WG Current Estimate 07/20/25 Ultrasound #1 27w 0d Other Estimates 06/28/25 LMP (Uncertain) 30w 1d 07/26/25 Ultrasound #2 26w 1d 07/20/25 Manual 27w 0d final hoang: 07/20 Notes Visit Date: 04/20/25 Last Updated by: Carmel Deleon CNM 3rd tri wnl, 04/10: bile acid: 5.9 Visit Date: 03/13/25 Last Updated by: Carmel Deleon CNM RHOGAM at 28 week AFP- Visit Date: 01/28/25 Last Updated by: Carmel Deleon CNM NIPT-,SMA-,CF-. sono 01/05/25: iup 12 wk, CEDC:07/20/24 Visit Date: 12/31/24 Last Updated by: Carmel Deleon CNM O-,ABS-, HCV-,HBSAG-, HIV-, RUB NI, GC/CT-, /, UT-,A1;5.3 Visit Date: 11/28/24 Last Updated by: Carmel Deleon CNM 19 yo . no dates Office Procedures OBC Clinic LOC & Office Proc's Nursing/Assessment Patient Status: Established Patient OB Clinic Nursing Assessment: Medication Reconciliation, Update PMH in EMR and Vital Signs OB Clinic Coordination of Care: Complex Care and Chronic Disease 1-5, Consent,records obtained, informed consent, Education Simp Pt/Fam, 1 Ins Authorization, Lab and Imaging orders, Results/Orders obtained and Staff clarify orders Special Needs: Heart tones Established Patient Charge Established Patient Point Assignment: 150 Established Patient Point Charge: EP Level 4 (120-155) Injection/Vaccine Admin Admin 1st Vaccine: Yes Office Meds Rhophylac 1,500 unit (300 mcg)/2 mL injection syringe Performing Provider: Carmel Deleon CNM Performing Location: [facility]AND[facility] [employer]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 Discussed labor precautions. Continue prenatals. Iron twice a day. Return in 3 weeks OB check Additional Plan Follow Up: 3 Weeks (obc)
== END 2025-04-20 13:32 | disposition home or self-care (01) ==
LOC: HODSOBC 13:01
PROVIDERS: Supervising Provider Advanced Practice Midwife; Visit Provider Advanced Practice Midwife
DX: O09.92 Supervision of high risk pregnancy, unspecified, second trimester (principal); Z3A.27 27 weeks gestation of pregnancy; Z28.21 Immunization not carried out because of patient refusal
CPT/HCPCS: 90471; 96372; 99214; J3490; G0463; J2791